=== PATIENT | female | born 1965 | race African-American/Black ===

== ENCOUNTER 2021-04-04 12:03 | Inpatient (IN) | payer SELFPAY ==
[2021-04-04 12:21] VITALS: BMI 22.9
[2021-04-04 15:20] LABS: BASO % 0.8 % (0-2.0); EOS % 0.4 % (0-4.5); HEMATOCRIT 41.4 % (32.4-45.2); HEMOGLOBIN 13.6 GM/dL (10.7-15.3); LYMPH % 17.2 % (8-40); MCH 26.9 pg (25.7-33.7); MCHC 32.8 g/dl (32.0-36.0); MEAN CELL VOLUME 82.2 fl (80-96); MONO % 8.9 % (3.8-10.2); NEUT % 72.7 % (42.8-82.8); PLATELET COUNT 379 10^3/uL (134-434); RBC 5.04 M/mm3 (3.60-5.2); RDW 14.5 % (11.6-15.6)
[2021-04-04 15:34] LABS: INR 1.43 (0.83-1.09); PROTHROMBIN TIME (PATIENT) 17.4 SEC (9.7-13.0)
[2021-04-04 15:36] LABS: ACTIVATED PTT 32.5 SECONDS (25.2-36.5)
[2021-04-04 15:40] LABS: CHLORIDE 96 mmol/L (98-107); SODIUM 133 mmol/L (136-145)
[2021-04-04 15:43] LABS: CALCIUM 8.7 mg/dL (8.5-10.1)
[2021-04-04 15:44] LABS: ALBUMIN 2.7 g/dl (3.4-5.0); ANION GAP 11 MMOL/L (8-16); CO2 25 mmol/L (21-32); GLUCOSE,RANDOM 89 mg/dL (74-106)
[2021-04-04 15:47] LABS: CREATININE 0.9 mg/dL (0.55-1.3); SGOT/AST 20 U/L (15-37); SGPT/ALT 30 U/L (13-61)
[2021-04-04 15:48] LABS: BILIRUBIN,TOTAL 1.3 mg/dL (0.2-1)
[2021-04-04 15:49] LABS: ALK PHOS 112 U/L (45-117); TOT PROT 7.7 g/dl (6.4-8.2)
[2021-04-04 15:52] LABS: N-TERMINAL BNP 8225.1 pg/ml (5-125)
[2021-04-04] MEDS ORDERED: FUROSEMIDE 40 MG/4 ML INJECTABLE VIAL IVPUSH ONE ×2 (17:15→20:46)
[2021-04-04] MEDS ORDERED: FUROSEMIDE 40 MG/4 ML INJECTABLE VIAL ONE (17:48)
[2021-04-04] MEDS ORDERED: ACETAMINOPHEN 325 MG TABLET (FP) PO PRN (20:37)
[2021-04-04] MEDS ORDERED: MELATONIN 5 MG TABLETS PO PRN (20:44)
[2021-04-04] MEDS ORDERED: ENOXAPARIN NA (PORCINE) 40 MG/0.4 ML DISP.SYRIN SQ SCH (20:45)
[2021-04-04] MEDS: ENOXAPARIN NA (PORCINE) 80 MG/0.8 ML DISP.SYRIN SQ SCH (22:44)
[2021-04-05] MEDS ORDERED: FUROSEMIDE 40 MG/4 ML INJECTABLE VIAL ONE ×3 (02:41→17:45)
[2021-04-05] MEDS ORDERED: ENOXAPARIN NA (PORCINE) 80 MG/0.8 ML DISP.SYRIN SQ ONE ×3 (02:41→21:23)
[2021-04-05 04:38] LABS: EPI CELLS 12 /uL (0-25.1); HYALINE CASTS 1 /uL (0-3.1); PH,URINE 5.5 (5.0-8.0); URINE APPEARANCE CLEAR; URINE BACTERIA 136 /uL (0-1359); URINE BILIRUBIN NEGATIVE (NEGATIVE); URINE COLOR YELLOW; URINE GLUCOSE (UA) NEGATIVE (NEGATIVE); URINE KETONE NEGATIVE (NEGATIVE); URINE LEUK ESTERASE 2+ (NEGATIVE); URINE NITRITE NEGATIVE (NEGATIVE); URINE PROTEIN NEGATIVE (NEGATIVE); URINE RBC 7 /uL (0-23.9); URINE UROBILINOGEN 0.2 mg/dL (0.2-1.0); URINE WBC 63 /uL (0-25.8)
[2021-04-05] MEDS: FUROSEMIDE 40 MG/4 ML INJECTABLE VIAL IVPUSH SCH ×2 (07:19→14:45)
[2021-04-05 08:50] LABS: BASO % 0.6 % (0-2.0); EOS % 0.2 % (0-4.5); HEMATOCRIT 39.7 % (32.4-45.2); HEMOGLOBIN 13.2 GM/dL (10.7-15.3); LYMPH % 12.3 % (8-40); MCH 26.8 pg (25.7-33.7); MCHC 33.2 g/dl (32.0-36.0); MEAN CELL VOLUME 80.8 fl (80-96); MEAN PLT VOLUME 8.2 fl (7.5-11.1); MONO % 8.9 % (3.8-10.2); PLATELET COUNT 355 10^3/uL (134-434); RBC 4.92 M/mm3 (3.60-5.2); RDW 14.7 % (11.6-15.6); WHITE BLOOD COUNT 9.7 K/mm3 (4.0-10.0)
[2021-04-05 09:16] LABS: ALBUMIN 2.5 g/dl (3.4-5.0); MAGNESIUM 1.7 mg/dL (1.8-2.4)
[2021-04-05 09:17] LABS: CALCIUM 8.5 mg/dL (8.5-10.1)
[2021-04-05 09:18] LABS: BLOOD UREA NITROGEN 7.1 mg/dL (7-18)
[2021-04-05 09:20] LABS: PHOSPHOROUS 3.5 mg/dL (2.5-4.9)
[2021-04-05 09:21] LABS: TOT PROT 7.2 g/dl (6.4-8.2)
[2021-04-05 09:22] LABS: BILIRUBIN,TOTAL 0.6 mg/dL (0.2-1)
[2021-04-05] MEDS: ENOXAPARIN NA (PORCINE) 80 MG/0.8 ML DISP.SYRIN SQ SCH ×2 (10:10→22:05)
[2021-04-05] MEDS ORDERED: MUPIROCIN 2% TOPICAL OINTMENT FOR DECOLONIZATION NS SCH (11:00)
[2021-04-05] MEDS ORDERED: ALBUTEROL SO4 HFA INHALER IH PRN (11:30)
[2021-04-05] MEDS ORDERED: MAGNESIUM OXIDE 400 MG TABLET (FP) PO ONE (11:30)
[2021-04-05] MEDS ORDERED: POTASSIUM CHLORIDE TABS 20 MEQ TABLET.ER (FP) PO ONE (11:30)
[2021-04-05] MEDS ORDERED: POTASSIUM CHLORIDE ORAL LIQUID 20 MEQ/15 ML ONE (11:35)
[2021-04-05] MEDS ORDERED: POTASSIUM CHLORIDE TABS 10 MEQ TABLET.ER (FP) ONE (11:37)
[2021-04-05] MEDS ORDERED: MAGNESIUM OXIDE 400 MG TABLET (FP) ONE (11:38)
[2021-04-05] MEDS ORDERED: CHLORHEXIDINE GLUCONATE 4% CLEANSER FOR DECOLONIZATION TP SCH (22:00)
[2021-04-06 01:28] VITALS: BP 112/67; PULSE 107; TEMP 98.5
[2021-04-07 15:07] LABS: HOMOCYSTINE-PLASMA OR SERUM 11.4 umol/L (0.0-14.5)
[2021-04-08 11:08] LABS: DRVVT - 42.3 sec (0.0-47.0)
== END 2021-04-06 02:25 | disposition short-term general hospital (02) | DRG 134 ==
LOC: JER 12:03 → JERBED 18:17
PROVIDERS: ADMIT Internal Medicine; ATTEND Nurse Practitioner Acute Care
DX: I26.99 Other pulmonary embolism without acute cor pulmonale (principal); I50.21 Acute systolic (congestive) heart failure; R04.2 Hemoptysis; I42.9 Cardiomyopathy, unspecified; J98.11 Atelectasis; E88.09 Other disorders of plasma-protein metabolism, not elsewhere classified; I51.7 Cardiomegaly; R63.0 Anorexia
CPT/HCPCS: 36415; 71046-TC-FY; 71275-TC; 80053; 80061; 81003; 82550; 83036; 83090; 83735; 83880; 84100; 84436; 84443; 84484; 85025; 85379; 85384; 85610; 85613; 85730; 85732; 86038; 86850; 86900; 86901; 93005; 93010; 93306-TC; 93970-TC; 99285-25; C9803; Q9967; U0003; U0005